=== PATIENT | male | born 1960 | race Caucasian/White ===

== ENCOUNTER 2016-08-11 06:59 | Day surgery (SDC) | payer OTHER ==
[~2016-08-11] VITALS: Ht 182.9 cm; Wt 108.5 kg
--- NOTE | 2016-08-12 07:52 | OR ---
ADMIT: 08/11/2016 RM/LOC: [facility] MR#: [id number] [id number] [place] [address] [address] [place] [id number] Operative/Delivery Room Report SEX: M AGE: 56 : 1960 SURGERY DATE: 08/11/2016 SURGEON: Gato Head MD PROCEDURE: Total colonoscopy with hot biopsy polypectomies. PREOPERATIVE DIAGNOSIS: Family history of colon cancer. POSTOPERATIVE DIAGNOSES: 1. Colon polyps. 2. Nonspecific ileitis. PROCEDURE IN DETAIL: The patient brought to procedure room, placed in left lateral decubitus position. Informed consent had been obtained preoperatively. The risks and benefits including, but not limited to, perforation, sedation, bleeding were discussed with the patient and agreed upon. All questions were answered, alternatives discussed, the patient agreed. Monitored anesthesia care was provided by Robert Sanchez CRNA with propofol and Alfenta. Anal inspection digital examination revealed no abnormalities or obstructing masses. Prostate was normal in size, texture, and contour without nodularity. Olympus videoendoscope, model CF-H180AL was introduced through the rectum, advanced to cecum without difficulty. The appendiceal orifice and ileocecal valve were identified. The valve was cannulated. There was a nonspecific ileitis present without ulceration. No biopsies were taken. The scope was withdrawn into the cecum where there was a polyp that was removed with the hot biopsy forceps, cauterized, and retrieved. In the ascending colon, 2 more polyps were identified and removed in a similar fashion. The remainder of the ascending, transverse, descending colon were normal. In the sigmoid, there was a hyperplastic polyp that was biopsied, cauterized, and retrieved. Rectum appeared normal. Scope was retroflexed. The anal verge appeared normal. The patient tolerated the procedure well. No complications were expected. Blood loss was less than 1 mL. He will call me in 1 week for his biopsy report, sooner if he should have any postoperative problems. Recommend he have repeat colonoscopy in 5 years unless signs or symptoms develop in the interval. Gato Head MD/ maria luisa JOB #: [id number] CC: Gato Head, Attending Physician FAMILY PHYSICIAN, Family Physician Shonna Dyson MD
== END 2016-08-11 10:12 | disposition home or self-care (01) ==
LOC: SSS 06:59
PROC: 0DBN8ZX Excision of Sigmoid Colon, Via Natural or Artificial Opening Endoscopic, Diagnostic (ICD-10-PCS; principal; 2016-08-11)
PROC: 0DBH8ZX Excision of Cecum, Via Natural or Artificial Opening Endoscopic, Diagnostic (ICD-10-PCS; principal; 2016-08-11)
PROC: 0DBK8ZX Excision of Ascending Colon, Via Natural or Artificial Opening Endoscopic, Diagnostic (ICD-10-PCS; principal; 2016-08-11)
DX: D12.0 Benign neoplasm of cecum (principal); D12.2 Benign neoplasm of ascending colon; K63.5 Polyp of colon; E78.00 Pure hypercholesterolemia, unspecified; I10 Essential (primary) hypertension; Z79.899 Other long term (current) drug therapy; Z80.0 Family history of malignant neoplasm of digestive organs